=== PATIENT | male | born 1985 | race Caucasian/White ===

== ENCOUNTER 2022-07-03 08:37 | Emergency (ER) | payer MEDICAID ==
[~2022-07-03] VITALS: Ht 177.8 cm; Wt 119.7 kg
[2022-07-03 08:37] VITALS: BP 143/68
[2022-07-03] MEDS ORDERED: LIDOCAINE 2% 20 ML MDV ONE (09:45)
[2022-07-03] MEDS ORDERED: LIDOCAINE 2% 20 ML MDV TP ONE (10:00)
--- NOTE | 2022-07-03 10:17 | NUR ---
XYLOCAINE GIVEN BY
[2022-07-03] MEDS ORDERED: BACITRACIN ZINC OINT PACKET 1 EA PACKET TP ONE ×2 (11:04→11:30)
[2022-07-03] MEDS ORDERED: CEPH500C2 PO (11:06)
[2022-07-03] MEDS ORDERED: IBUP-1955 PO (11:06)
[2022-07-03] MEDS ORDERED: SULF1TAB48 PO (11:06)
[2022-07-03] MEDS ORDERED: BACI30OI9 TP (11:06)
--- NOTE | 2022-07-03 12:02 | NUR ---
I&D, PT PROVIDED W/ WOUND CARE. D/C W/ PRESCRIPTION IN STABLE CONDITION.
== END 2022-07-03 12:04 | disposition home or self-care (01) ==
LOC: ER 08:39
DX: L02.11 Cutaneous abscess of neck (principal); L72.8 Other follicular cysts of the skin and subcutaneous tissue; Z79.899 Other long term (current) drug therapy
CPT/HCPCS: 99283; 10060; A6403; A6407; J3490

== ENCOUNTER 2022-07-05 19:47 | Emergency (ER) | payer MEDICAID ==
[~2022-07-05 19:47] MED LIST: BACI30OI9 TP; CEPH500C2 PO; IBUP-1955 PO; SULF1TAB48 PO
--- NOTE | 2022-07-05 20:00 | NUR ---
CALLED TO TRIAGE, NO ANSWER
--- NOTE | 2022-07-05 20:30 | NUR ---
CALLED TO TRIAGE, NO ANSWER, PT IS NOT IN WAITING ROOM
== END 2022-07-05 21:33 | disposition left against medical advice (07) ==
LOC: ER 19:48
DX: Z53.21 Procedure and treatment not carried out due to patient leaving prior to being seen by health care provider (principal)

== ENCOUNTER 2025-04-29 10:11 | Emergency (ER) | payer MEDICAID, OTHER ==
[~2025-04-29] VITALS: Ht 167.6 cm; Wt 109.8 kg
[2025-04-29 10:15] VITALS: BP 132/82; TEMP 98.4; O2SAT 99
[2025-04-29] MEDS ORDERED: SULF1TAB48 PO (11:29)
== END 2025-04-29 11:36 | disposition home or self-care (01) ==
LOC: ER 10:22
DX: L08.9 Local infection of the skin and subcutaneous tissue, unspecified (principal)

== ENCOUNTER 2025-05-08 11:42 | Emergency (ER) | payer MEDICAID, OTHER ==
[~2025-05-08] VITALS: Ht 172.7 cm; Wt 78.9 kg
[2025-05-08] MEDS: LIDOCAINE 2% 20 ML MDV TP ONE (13:01)
[2025-05-08] MEDS ORDERED: AMOX-430 PO (13:14)
[2025-05-08 13:31] VITALS: BP 124/70; TEMP 98.4; O2SAT 97
== END 2025-05-08 13:32 | disposition home or self-care (01) ==
LOC: ER 11:49
DX: D36.9 Benign neoplasm, unspecified site (principal); Z91.048 Other nonmedicinal substance allergy status
CPT/HCPCS: 99283; A6403